=== PATIENT | female | born 1960 | race American Indian/Alaskan Native ===

== ENCOUNTER 2020-01-19 11:49 | Outpatient (CLI) | payer BC ==
--- NOTE | 2020-01-19 13:05 | XRay Report ---
HISTORY:BILATERAL KNEE PAIN COMPARISON: None. TECHNIQUE: AP lateral and obliques views of both knees were obtained FINDINGS: Bones: No fracture or dislocation. Joint spaces: Moderate narrowing of the medial component femoral tibial articulation Soft tissues: No significant abnormality. Additional findings: None. IMPRESSION: 1. No significant abnormality. 2. Degenerative changes as noted Signer Name: Guille Carrero MD Signed: 01/19/2020 1:01 PM Workstation Name: [id number]
--- NOTE | 2020-01-19 13:07 | XRay Report ---
HISTORY:BILATERAL FOOT PAIN COMPARISON: None. TECHNIQUE: AP lateral and obliques views of both feet were obtained FINDINGS: Bones: No fracture or dislocation. Joint spaces: Maintained. Soft tissues: No significant abnormality. Additional findings: Bilateral calcaneal spurs present IMPRESSION: 1. No significant abnormality. Signer Name: Guille Carrero MD Signed: 01/19/2020 1:02 PM Workstation Name: [id number]
== END 2020-01-19 11:50 | disposition home or self-care (01) ==
LOC: SPVIMAG 11:49
PROVIDERS: ATTEND Internal Medicine
DX: M25.561 Pain in right knee (principal); M25.562 Pain in left knee; M25.572 Pain in left ankle and joints of left foot; M25.571 Pain in right ankle and joints of right foot